=== PATIENT | female | born 1965 | race Caucasian/White ===

== ENCOUNTER 2017-04-17 16:51 | Emergency (ER) | payer OTHER ==
[~2017-04-17] VITALS: Ht 170.2 cm; Wt 72.7 kg
[~2017-04-17 16:51] MED LIST: ACYC400T17 PO; DULO60CA61 PO; LORA-303 PO; PRE625 PO; QUET25TA73 PO
[2017-04-17 16:54] VITALS: BP 134/84; PULSE 59; O2SAT 100
--- NOTE | 2017-04-17 17:28 | ED.REPORT ---
HPI-Extremity Problem Upper Date of Service Apr 17, 2017 ED Provider: Madeleine Sanders History of Present Illness: right index finger tip cut with mandolin today around 3 pm. up to date. normally healthy. primary care is jimmy cano 10/14 Nursing Notes Stated Complaint: RIGHT HAND LACERATION Chief Complaint: Extremity Trauma Nursing Notes Reviewed: Yes Allergies: Coded Allergies: Sulfa (Sulfonamide Antibiotics) (Verified Allergy, Unknown, 02/05/16) Scheduled Acyclovir-Expunged Drug, Do Not Renew! (Acyclovir-Expunged Drug, Do Not Renew!) 400 Mg Tablet 200 MG PO BID Duloxetine (Duloxetine) 60 Mg Capsule.dr 60 MG PO DAILY Estrogens Conj-Expunged Drug, Do Not Renew! (Premarin-Expunged Drug, Do Not Renew!) 0.625 Mg Tab 0.625 MG PO DAILY Quetiapine Fumarate (Quetiapine Fumarate) 25 Mg Tablet 25 MG PO HS Scheduled PRN Lorazepam-Expunged Drug, Do Not Renew! (Lorazepam-Expunged Drug, Do Not Renew!) 1 Mg Tab 0.5-1 TAB PO BIDP PRN PRN General Time Seen by MD: 17:27 Chief Complaint Finger injury right 2 Hx Obtained From: Patient Onset Occurred: Just prior to arrival Symptom Duration: Since onset Past Medical History Past Medical History Denies: Asthma Past Surgical History nose, tennis elbow Reports: Hysterectomy Smoking History Never Smoker Social History Alcohol Use: Denies alcohol use Drug Use: Denies drug use Other Social History: Occupation work at [employer] 04/17/2017 Ambulatory Status Independent Review of Systems Basic Review of Systems Eyes: Vision NL, No discharge : No dysuria, No frequency Psychiatric: Normal thought content Physical Exam Initial Vital Signs Vital Signs (First) Date Time Temp Pulse Resp B/P Pulse Ox O2 Delivery O2 Flow Rate FiO2 04/17/17 16:54 36.6 59 134/84 100 Room Air Initial VS: Reviewed, Vital signs normal General/Constitutional: Well-developed, Well-nourished Head / Eyes: Atraumatic, Normocephalic, PERRL ENT: Mucous membranes moist, Conjunctiva normal, No scleral icterus Neck: Supple, Non-tender, Full range of motion Respiratory: Breath sounds normal, Clear to auscultation, No respiratory distress Cardiovascular: Regular rate & rhythm, Heart sounds normal, Intact distal pulses Abdomen / GI: Soft, Non-tender, No guarding, No rebound, No distention Back: No CVA tenderness Lymphatic: No lymphadenopathy Lower Extremities: Vascular intact, Neuro intact, No swelling, No tenderness Skin: Warm, Dry, No cyanosis Neurologic: Alert, Oriented, Nonfocal Psychiatric: Mood/affect normal, Behavior normal, Normal thought content General/Constitutional: Awake, Alert, No acute distress, Well appearing, Well developed, Well hydrated Respiratory / Chest: Atraumatic, Breath sounds NL, Breath sounds = bilat, No respiratory distress Cardiovascular: Heart rate NL, Regular rhythm, Heart sounds NL, No gallop right index finger tip has .6 cm laceration at tip of finger. No active bleeding. Sensation intact distally. Cap refill less than 2 sec. Procedures Laceration Management Time: 17:20 Procedure Performed by: Allied health pract Consent / Setup / Site Prep: Informed consent provided, Consent from patient , Hand hygiene observed Location of Wound: right index finger tip .6 cm Wound Preparation: Normal saline Repair Skin: Dermabond Post-Procedure / Complications: Dressing applied, Condition improved, Tolerated procedure well, Patient stable Re-Eval/Medical Decision Med Decision/Clinical Course 52 year old female presents for evualation of laceration to right index finger tip. Laceration is .6cm in legth. No active bleeding. Patient with full range of motion. No sign of fracture or compartment syndrome Discharge & Departure Impression: Primary Impression: Finger laceration Encounter type: initial encounter Qualified Code: S61.219A - Laceration without foreign body of unspecified finger without damage to nail, initial encounter Disposition: Home Patient Instructions: Finger Laceration (ED) Additional Instructions: The finger tip laceration has been washed and repaired with dermabond. It is water proof. You can cover with a band aid as needed. Sorry this happened. enjoy the last weeks of summer high school [employer] starts! Referrals: Jimmy Cano EDSupervising Provider for APC: Edmund Mark DO copies to: Jimmy Cano Sue ARNP Apr 17, 2017 17:28
[2017-04-17] MEDS ORDERED: Tissue Adhesive Liq (CS Supplied) TOPICAL ONE (17:35)
[2017-04-17 18:03] VITALS: BP 134/84; PULSE 59; O2SAT 100
== END 2017-04-17 18:04 | disposition home or self-care (01) ==
LOC: SED 16:51
DX: S61.210A Laceration without foreign body of right index finger without damage to nail, initial encounter (principal); W26.8XXA Contact with other sharp object(s), not elsewhere classified, initial encounter; Y93.9 Activity, unspecified; Y92.9 Unspecified place or not applicable; Y99.9 Unspecified external cause status; Z90.710 Acquired absence of both cervix and uterus; Z88.2 Allergy status to sulfonamides